=== PATIENT | male | born 1960 | race Caucasian/White ===

== ENCOUNTER 2016-10-05 14:11 | Inpatient (IN) | payer MEDICARE ==
[~2016-10-05] VITALS: Ht 177.8 cm; Wt 64.2 kg
--- NOTE | ~2016-10-05 | DS ---
PATIENT'S NAME: ISREAL KNIGHT [facility] AGE: 56 Y [address] ROOM: [place] [address] LOCATION: [facility] ADMIT DATE: 10/05/2016 Discharge Summary DISCHARGE DATE: 10/15/2016 FAMILY PHYSICIAN: Physician, Unknown ATTENDING PHYSICIAN: Kaity Bradshaw PRINCIPAL DISCHARGE DIAGNOSIS: Severe sepsis with shock. SECONDARY DIAGNOSES: 1. Left distal ureteral obstruction, secondary to calculus. 2. History of left hydronephrosis, prior to stenting. 3. Acute kidney injury with creatinine of 2.9, present on admission. 4. Thrombocytopenia with a platelet count of 4, present on admission. 5. Hepatitis C with cirrhosis. 6. Gastroesophageal reflux disease. 7. Depression. 8. Diabetes mellitus type 2, poorly controlled, with a hemoglobin A1c of 12.4, present on admission. CONSULTATIONS: 1. Urology, on 10/05/2016, Dr. Dominique. 2. Dr. Kearney of Nephrology on 10/09/2016. PROCEDURES: Cystourethroscopy with left ureteral stent placement on 10/05/2016. COMPLICATIONS: None. BRIEF HISTORY: Mr. Knight is a 56-year-old male with chronic hepatitis C and end-stage liver cirrhosis transferred from [place] with septic shock related to urinary tract infection with Enterobacter aerogenes from blood cultures drawn on 10/05/2016. He was treated with ceftriaxone and Levaquin. Levaquin was discontinued today. He required the stenting and received some continuous bladder irrigation up until 2 mornings ago. His urinary catheter was discontinued yesterday morning. He has been urinating well without it. He had acute kidney injury related to left hydronephrosis, obstructive, but also probably likely related to his chronic liver failure and probably dehydration; so, it is probably multifactorial and hepatorenal syndrome could not be ruled out. He has been managed by Dr. Kearney and treated with diuretics, which were held yesterday, but he continued to have good output. We will resume Aldactone 12.5 p.o. daily and Lasix 40 mg p.o. daily now. PATIENT'S NAME: ISREAL KNIGHT [facility] AGE: 56 Y [address] ROOM: [place] [address] LOCATION: [facility] ADMIT DATE: 10/05/2016 Discharge Summary DISCHARGE DATE: 10/15/2016 FAMILY PHYSICIAN: Physician, Unknown ATTENDING PHYSICIAN: Kaity Bradshaw The patient has very poorly-controlled diabetes with an A1c of 12.4, also present on admission. He has been on basal insulin plus sliding scale. I added prandial dosing yesterday and increased his basal insulin and his sugars are much lower today. He had been in the 300s and high 200s. We elected to keep him on a sliding scale with both the prandial and basal insulin dosing now. He had severe thrombocytopenia, also present on admission. He received a total of 8 units of platelet transfusion. Currently, he has no active bleeding and platelet count has been stable in the 30s for the past few days, currently 39. He has had leukocytosis despite being on 2 appropriate antibiotics according to the susceptibilities for his bacteremia and now have started diarrhea this morning. We will try to obtain a specimen for C. diff prior to transfer as this may be the reason for his leukocytosis. PHYSICAL EXAMINATION: VITAL SIGNS: He is otherwise afebrile with vital signs stable. Current vital signs are temperature 97.9, he has been afebrile for days, his pulse is 78, his respirations are 16, his blood pressure is 130/79, in this cachectic male who is awake, alert, and oriented. LUNGS: Clear bilaterally. HEART: Rate is regular. ABDOMEN: Full, distended, slightly tender with normoactive bowel sounds. EXTREMITIES: There is no cyanosis, clubbing, or edema in the lower extremities. LABORATORY DATA: Current Accu-Chek is 108. Current metabolic panel shows sodium 138, potassium 3.5, chloride 101, CO2 25, BUN 114, creatinine 2.8, albumin 2.5, phosphorus 4.8, and mag 1.7. A prealbumin was ordered, but not resulted yet. The patient is in agreement with the plan for discharge. His family is not here yet. I have attempted to call Dr. Wilson, he was not in his office today, I called his cellphone and left a message, and I will speak with him prior to the patient reporting to the hospital. INSTRUCTIONS AT DISCHARGE: He has a diabetic hepatic diet, regular texture, activity as tolerated. He should continue OT, PT, Speech Therapy, Palliative Care with Dr. Yates at [place]. He is to follow up with Dr. Wilson there. MEDICATIONS AT THE TIME OF DISCHARGE: Include: 1. Lasix 40 mg p.o. daily. 2. NovoLog prandial dosing 4 units with each meal sliding scale with the PATIENT'S NAME: ISREAL KNIGHT [facility] AGE: 56 Y [address] ROOM: [place] [address] LOCATION: [facility] ADMIT DATE: 10/05/2016 Discharge Summary DISCHARGE DATE: 10/15/2016 FAMILY PHYSICIAN: Physician, Unknown ATTENDING PHYSICIAN: Kaity Bradshaw lower scale with NovoLog before each meal and at bedtime. 3. Levemir 15 units at h.s. daily subcu. 4. Midodrine 10 mg p.o. t.i.d. 5. Morphine sulfate. 6. MS Contin 15 mg p.o. b.i.d. 7. Protonix 40 mg p.o. daily. 8. Spironolactone 12.5 mg p.o. daily. 9. Tamsulosin 0.4 mg b.i.d. 10. Zofran 4 mg p.o. p.r.n. nausea. 11. Promethazine 12.5 mg p.o. p.r.n. nausea. 12. Slow-Mag one p.o. b.i.d. CONDITION AT DISCHARGE: Fair. DARWIN LIU MD LM/jesse /[id number] d: 10/16/16219 t: 10/20/16 1202, DISCHARGE SUMMARY
--- NOTE | ~2016-10-05 | HP ---
PATIENT'S NAME: ISREAL KNIGHT [facility] AGE: 56 Y [address] ROOM: [place] [address] LOCATION: GICU ADMIT DATE: 10/05/2016 History & Physical DISCHARGE DATE: FAMILY PHYSICIAN: PHYSICIAN, UNKNOWN ATTENDING PHYSICIAN: JOSSELYN MCKINNEY DATE OF SERVICE: CHIEF COMPLAINT: Septic shock, obstructive uropathy, and left-sided hydronephrosis with kidney stones. HISTORY OF PRESENT ILLNESS: This is a 56-year-old male with chronic hepatitis C and cirrhosis, transferred from [place] after presenting there in septic shock. The patient had visited their emergency room just two days prior and was diagnosed with a left- sided nephrolithiasis and was stent home with pain medications and conservative care. However, the day following his discharge, patient continued to have dizziness, lightheadedness, and worsening pain with associated fever and chills. Upon presentation, the patient was found to be hypotensive and significant pain with altered mental status. Per report, the patient was brought to emergency room with his ex- in a minimal responsive state. On my evaluation today, the patient is ill appearing. However, he is alert, awake, and oriented x3, and he could tell me his name and where he is. Does report significant left-sided abdominal pain. PAST MEDICAL HISTORY: 1. Chronic hepatitis C. 2. Chronic low back pain. 3. Type 2 diabetes. FAMILY HISTORY: No report of diabetes, hypertension, or heart disease noted. SOCIAL HISTORY: The patient is known to have chronic hepatitis C, but no reports of previous IV drug use history. No reports of tobacco use to be found on the chart. REVIEW OF SYSTEMS: A 10-point review of systems was conducted and were all negative except as the one which was described in the HPI. PHYSICAL EXAMINATION: VITAL SIGNS: Blood pressure is 103/68 on maximum Levophed, heart rate is 103, respiratory rate 25, and saturating 90% on 3 L of oxygen. PATIENT'S NAME: ISREAL KNIGHT [facility] AGE: 56 Y [address] ROOM: [place] [address] LOCATION: GICU ADMIT DATE: 10/05/2016 History & Physical DISCHARGE DATE: FAMILY PHYSICIAN: PHYSICIAN, UNKNOWN ATTENDING PHYSICIAN: JOSSELYN MCKINNEY GENERAL: The patient is ill-appearing. Awake, alert, and oriented x3, in moderate amount of distress. HEENT: The patient exhibits dry mucosal membranes. Does exhibit some mild scleral icterus. SKIN: Erythema of bilateral feet. ABDOMEN: Tenderness to palpation over the suprapubic and left flank area. It is otherwise soft. MUSCULOSKELETAL: No joint redness or swelling noted. NEUROLOGIC: Grossly nonfocal. LABORATORY DATA: Significant labs: The patient's creatinine is 2.9. Platelets of 4, unclear what is the patient's baseline is. The patient reports from [place] [facility] has had a CT scan of the abdomen done which showed obstructive uropathy on the left side with significant hydronephrosis and obstructing renal calculi noted as well. ASSESSMENT AND PLAN: 1. Severe sepsis with shock. The is related to likely urinary tract infection stemming from and complicated by obstructive uropathy. The patient is noted to have hydronephrosis and an obstructing stone in the left ureter. Asking for prompt Urology evaluation and Dr. Dominique is to see the patient as soon as possible. In the meantime, we will continue with broad-spectrum antibiotics with Zosyn, aggressive IV fluid resuscitation, as well as pressor support. The patient's platelets noted to be 4, so we will try and correct that before any anticipated urgent urological intervention. 2. Obstructive uropathy stemming from an obstructing renal calculi on the left side. Management as above. 3. Acute kidney injury, creatinine is 2.9. This is related to septic shock picture as well as obstructive uropathy. We will continue to monitor the kidney function with the treatment of sepsis and relieving of obstruction. 4. Thrombocytopenia. Platelets are 4. The patient is high risk for bleeding in the setting of patient in the ICU and requiring procedures for that. We will prepare one pack of platelets and transfuse urgently. 5. Chronic hepatitis C and possible cirrhosis. The patient tells me that he is not aware of having cirrhosis. Thrombocytopenia is perhaps related to this. 6. Deep venous thrombosis prophylaxis. We will use SCDs. JOSSELYN MCKINNEY MD PATIENT'S NAME: ISREAL KNIGHT [facility] AGE: 56 Y [address] ROOM: [address] [address] [address]: [facility] ADMIT DATE: 10/05/2016 History & Physical DISCHARGE DATE: FAMILY PHYSICIAN: PHYSICIAN, UNKNOWN ATTENDING PHYSICIAN: JOSSELYN MCKINNEY /[id number] D: [id number] T: [id number] HISTORY & PHYSICAL
--- NOTE | ~2016-10-05 | CON ---
PATIENT'S NAME: ISREAL KNIGHT [facility] AGE: 56 Y [address] ROOM: [place] [address] LOCATION: GPCU ADMIT DATE: 10/05/2016 Consultation DISCHARGE DATE: FAMILY PHYSICIAN: PHYSICIAN, UNKNOWN ATTENDING PHYSICIAN: JOSSELYN MCKINNYE DATE OF CONSULTATION: 10/07/2016 REFERRING PHYSICIAN: MACIEL DALEY MD LOCATION: ICU room [facility]. REFERRING PHYSICIAN: CHIEF COMPLAINT: Palliative care referral per family's request due to the patient's decline over the last few months. HISTORY OF PRESENT ILLNESS: The patient is a 56-year-old male with chronic hepatitis C and end-stage liver cirrhosis, who was transferred to us from [place] after presenting there in septic shock. Apparently, a few days prior to this, the patient had presented and was found to have left-sided nephrolithiasis and was given pain medication and antibiotics and sent home, but at home the patient continued to have lightheadedness, worsening pain, fever, and chills, and upon re- evaluation in the ER, was found to be hypotensive with altered mental status. At the time of consult, the patient is in the Intensive Care Unit. He is arousable but disoriented x3. Unable to really answer any orientation or review of system questions. He has been weaned off vasopressors, but lies in intensive care unit, moaning in pain, despite the fact that he shakes his head no when asked if he is having pain. Family reports the patient's condition has been declining over the last few months. The patient's ex- is a hospice nurse and is quite realistic to his situation and is requesting palliative care services to assist with the patient's care. PREVIOUS OPERATIONS: None. PAST MEDICAL HISTORY: 1. Chronic hepatitis C. 2. End-stage liver disease. 3. Chronic low back pain. 4. Diabetes mellitus type 2. PATIENT'S NAME: ISREAL KNIGHT [facility] AGE: 56 Y [address] ROOM: [place] [address] LOCATION: GPCU ADMIT DATE: 10/05/2016 Consultation DISCHARGE DATE: FAMILY PHYSICIAN: PHYSICIAN, UNKNOWN ATTENDING PHYSICIAN: GEBREMICHAEL,BARKOT MEDICATIONS: Please see current MAR. ALLERGIES: NO KNOWN ALLERGIES. SOCIAL HISTORY: He does have a history of recreational drug use in the past. No current alcohol use. He has a history of smoking. He quit in 2016. FAMILY HISTORY: Diabetes and heart disease in his father's side of the family. REVIEW OF SYSTEMS: GENERAL: Family reports a significant 20+ pound weight loss in the last few months. Appetite has been decreasing at home. Had some fever and chills while at home, none recently. HEENT: No headaches. RESPIRATORY: Denies feeling short of breath. CARDIOVASCULAR: Denies chest pain. Has had some peripheral edema. GASTROINTESTINAL: No recent nausea, vomiting, diarrhea, or constipation. Denies dysphagia. GENITOURINARY: No dysuria. MUSCULOSKELETAL: Has chronic back pain. Currently denies any pain when asked. NEUROLOGICAL: No seizures. Denies dizziness. INTEGUMENTARY: No rashes or open areas. HEMATOLOGICAL: Does have lots of new bruises and petechiae. PSYCHIATRIC: Family reports history of paranoia and even delirium at home. PHYSICAL EXAMINATION: VITAL SIGNS: Blood pressure 90/62, heart rate 113, temperature 96.5, respirations 26, O2 saturation 95% on 5 L. GENERAL: Reveals a cachectic middle-aged male who appears much older than his age of 56. He is disoriented x3. Moans out and appears to be in pain, but denies pain whenever asked. HEENT: Normocephalic, atraumatic. Does have temporal muscle wasting. Pupils are equal and reactive to light. Sclerae nonicteric. Conjunctivae pink. Tongue and mucous membranes are dry. Dentition is poor. CARDIOVASCULAR: Heart tones regular in rate and rhythm. I am not able to note a murmur. RESPIRATORY: Respirations are regular and nonlabored. Lung sounds are clear to auscultation bilaterally. GASTROINTESTINAL: Abdomen, bowel sounds are present, but any time his abdomen is touched the patient moans out but continues to deny pain. GENITOURINARY: Hinson catheter is intact with adequate amounts of pink-tinged PATIENT'S NAME: ISREAL KNIGHT [facility] AGE: 56 Y [address] ROOM: [place] [address] [facility] ADMIT DATE: 10/05/2016 Consultation DISCHARGE DATE: FAMILY PHYSICIAN: PHYSICIAN, UNKNOWN ATTENDING PHYSICIAN: JOSESLYN MCKINNEY. He does have CBI running. MUSCULOSKELETAL: No significant joint deformities. Peripheral pulses are 1+ bilaterally. There is no clubbing, cyanosis, or edema. SKIN: Warm and dry. Does have petechiae and bruising all over bilateral upper and lower extremities. NEUROLOGICAL: The patient is easily arousable. Does not answer orientation questions. Is able to answer some yes/no questions but not consistently. Moves all 4 extremities spontaneously. Does not appear to have any weakness. IMPRESSION AND PLAN: 1. Altered mental status. 2. Questionable pain. The patient denies but does appear to have pain on examination. He was on MS Contin at home and had recently had this dose increased and also was using some short-acting morphine as well. His ex- does express concern of him possibly going through withdrawal as he has been on MS Contin for quite some time and he is not currently on anything except for p.r.n. Dilaudid. 3. Code status. The patient is a DO NOT RESUSCITATE/DO NOT INTUBATE, does not have an advance directive or living will. I did visit with the patient's ex-. They have five children together. The oldest is 18. Ex- has been quite involved in his care and is a hospice nurse. She is quite up-to-date on his condition and reports that he has been declining for some time. She does also report that if he does not make some improvements in the next day or two, she would like to bring him backing in machine tender to home and make him comfort cares or hospice. She does report that his sister is coming in from the [facility] and that the rest of the family will most likely be up here to visit in the next day or two, and we can further discuss goals of care at that time. At this point, she wants to continue with current aggressive measures, but should things worsen, she would not want him intubated or CPR given. Answered her questions, updated her on the patient's current condition, and will plan to meet up with the family in the next day or two for further goals of care conversations. Spent 15 minutes on the phone visiting with the patient's , another 15 minutes reviewing the chart, and 15 minutes at bedside with the patient. Thank you for allowing me to assist this patient. SIN COUGHLIN NP FOR DAWOOD LEGER MD DLS/modl PATIENT'S NAME: ISREAL KNIGHT [facility] AGE: 56 Y [address] ROOM: [address] [address] [facility] ADMIT DATE: 10/05/2016 Consultation DISCHARGE DATE: FAMILY PHYSICIAN: PHYSICIAN, UNKNOWN ATTENDING PHYSICIAN: JOSSELYN MCKINNEY /[id number] CC: Josselyn Mckinney MD d: 10/14/16 0233 t: 10/23/16 0821, CONSULTATION REPORT
--- NOTE | ~2016-10-05 | CON ---
PATIENT'S NAME: ISREAL KNIGHT [facility] AGE: 56 Y [address] ROOM: [address] [address] LOCATION: GICU ADMIT DATE: 10/05/2016 Consultation DISCHARGE DATE: FAMILY PHYSICIAN: PHYSICIAN, UNKNOWN ATTENDING PHYSICIAN: JOSSELYN MCKINNEY DATE OF CONSULTATION: 10/05/2016 CHIEF COMPLAINT: Sepsis secondary to left obstructing distal ureteral calculus. HISTORY OF PRESENT ILLNESS: The patient is a 56-year-old male, who was transferred from [facility] Emergency Room in critical condition. He was transferred via helicopter and just arrived to our intensive care unit. He apparently had been seen in the emergency room in [place], [place], on October 03, 2016, with complaints of left flank pain. There, he was noted to have an elevated white blood cell count of 16.8 and urine concerning for urinary tract infection with positive nitrites. He also was found to have a distal obstructing 3 mm left ureteral calculus. Apparently, he was discharged to home from the emergency room that day. He was found by his family unresponsive today, and was brought back into the emergency room, where he was found to have hypotension, and his white blood cell count had dropped to 7.0. His urine output was bloody and purulent. He also has a history of end-stage liver disease and chronic hepatitis C. His serum creatinine level had increased to 2.96, which was 1.06 on October 03, 2016. Also, his platelets decreased from 154 to 4. The patient was requiring Levophed pressor support given hypotension. The patient had apparently underwent administration with both Levaquin and vancomycin prior to air transport. Upon arrival to the intensive care unit, he began receiving Zosyn antibiotic. There is no reported history of prior nephrolithiasis. The patient still reports continued left abdominal and flank pain. His urine culture from 2 days ago was growing Gram-negative bacilli. PAST MEDICAL AND SURGICAL HISTORY: 1. Chronic GERD. 2. Chronic hepatitis C. 3. Chronic low back pain. 4. Depression. 5. Diabetes mellitus type 2. FAMILY HISTORY: Noncontributory. ALLERGIES: PATIENT'S NAME: ISREAL KNIGHT [facility] AGE: 56 Y [address] ROOM: [place] [address] LOCATION: [facility] ADMIT DATE: 10/05/2016 Consultation DISCHARGE DATE: FAMILY PHYSICIAN: PHYSICIAN, UNKNOWN ATTENDING PHYSICIAN: JOSSELYN MCKINNEY NO KNOWN DRUG ALLERGIES. MEDICATIONS: See hospitalization medication reconciliation. REVIEW OF SYSTEMS: A full 10+ point review of systems was performed with pertinent positive and negative findings including in history of present illness. All other systems reviewed and are otherwise negative. PHYSICAL EXAMINATION: CONSTITUTIONAL: The patient is in moderate distress, but is awake and responds to questioning. HEENT: Extraocular muscles intact. Mucous membranes moist. No drainage per ears or nose. CARDIAC: Tachycardia, but good peripheral perfusion. RESPIRATORY: No audible wheezing. ABDOMEN: Moderate discomfort to left lower quadrant and flank with palpation. GENITOURINARY: Indwelling Hinson catheter draining purulent bloody urine output. He is uncircumcised, and his testes are palpably normal. MUSCULOSKELETAL: Moves all extremities. NEUROLOGIC: No focal deficits noted. HEMATOLOGIC: The patient does have bloody urine output. PSYCHIATRIC: He answers questions appropriately with normal affect. The patient is somewhat lethargic. IMAGING: I personally reviewed his CT scan from today consistent with an obstructing distal left ureteral calculus with associated severe hydroureter and hydronephrosis. IMPRESSION: 1. Obstructing left distal ureteral calculus. 2. Urosepsis. PLAN: I had a long discussion with the patient and given his critical state and obstructing infected ureteral calculus, I recommended urgent intervention. I recommended cystoscopy with placement of indwelling left ureteral stent. I also discussed the possibility of the need for percutaneous nephrostolithotomy should his state become more critical or if we are unable to place a ureteral stent. We will also continue broad-spectrum antibiotics pending urine cultures. The patient's questions and concerns were addressed, and he has no further at this time. PATIENT'S NAME: ISREAL KNIGHT [facility] AGE: 56 Y [address] ROOM: [place] [address] LOCATION: [facility] ADMIT DATE: 10/05/2016 Consultation DISCHARGE DATE: FAMILY PHYSICIAN: PHYSICIAN, UNKNOWN ATTENDING PHYSICIAN: JOSSELYN MCKINNEY MD DORINDA CRUMP/jesse /[id number] d: 10/06/16 0010 t: 10/06/16 1553, CONSULTATION REPORT
--- NOTE | ~2016-10-05 | CON ---
PATIENT'S NAME: ISREAL KNIGHT [facility] AGE: 56 Y [address] ROOM: [place] [address] LOCATION: GPCU ADMIT DATE: 10/05/2016 Consultation DISCHARGE DATE: FAMILY PHYSICIAN: PHYSICIAN, UNKNOWN ATTENDING PHYSICIAN: JOSSELYN MCKINNEY DATE OF CONSULTATION: 10/09/2016 REFERRING PHYSICIAN: MACIEL DALEY MD REASON FOR CONSULTATION: KATRIN versus KATRIN on CKD. 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 Now, creatinine is 4 with estimated GFR around 15. Nephrology consultation has been called for further evaluation and management. He has been actually transferred from [place] after presenting there with a septic shock and diagnosed with left-sided nephrolithiasis and was sent home with pain medication and conservative care, but the day following discharge, the patient continued to have dizziness, lightheadedness, worsening pain, associated with fever and chills. Upon presentation, found to have hypotension and altered mental status. The patient was transferred here and found to have sepsis. Urology consultation was called urgently requiring left- sided ureteral stent. After the ureteral stent placement, his urine output has improved significantly. The patient was getting aggressive IV hydration as well as IV antibiotic for sepsis. Sepsis resolved. The patient clinically felt better. Altered mental status resolved; however, urine is still dark and the patient's creatinine continues to worsen despite all conservative management. REVIEW OF SYSTEMS: The patient although more alert than before, but still confused and more details of review of systems could not be obtained at this point. PAST MEDICAL HISTORY: 1. ESRD secondary to chronic hepatitis C. 2. Chronic lower back pain. 3. Type 2 diabetes. FAMILY HISTORY: No history of diabetes, hypertension, heart disease, or CKD. PATIENT'S NAME: ISREAL KNIGHT [facility] AGE: 56 Y [address] ROOM: [place] [address] LOCATION: GPCU ADMIT DATE: 10/05/2016 Consultation DISCHARGE DATE: FAMILY PHYSICIAN: PHYSICIAN, UNKNOWN ATTENDING PHYSICIAN: JOSSELYN MCKINNEY SOCIAL HISTORY: No history of previous IV drug abuse. History of chronic hepatitis C. No reports of smoking. PHYSICAL EXAMINATION: VITAL SIGNS: Blood pressure 100/60, heart rate 105-118, respiratory rate 22, saturations 90% to 95% on 2-3 L of oxygen. GENERAL: Not in apparent distress. HEAD: Moist mucous membranes. Bilateral PERRLA, EOMI. NECK: Positive JVD. No thyromegaly or lymphadenopathy. CVS: S1 and S2 normal, regular rate and rhythm. No murmur, rub, gallop. CHEST: Bilateral air entry equal anteriorly; however, there is decreased breath sound at the bases. No wheezes or rales. ABDOMEN: Soft, nontender, mildly distended. Bowel sounds present. EXTREMITIES: No cyanosis, clubbing, jaundice, 1+ dependent edema in bilateral lower extremities. MUSCULOSKELETAL: No limitation of range of motion. SKIN: No pallor, cyanosis, icterus. FORENSIC PHOTOGRAPHER: Alert and tries to communicate; however, appears to be confused and have fluctuating mental status. No gross focal neurological deficit and moves all 4 extremities. ASSESSMENT AND PLAN: 1. Acute kidney injury versus acute kidney injury on chronic kidney disease, although baseline creatinine is unknown, but as per the , creatinine at baseline was around 1.3. Currently, creatinine is in the 4 range, although has a significant component of obstructive uropathy in the beginning, but now probably has septic acute tubular necrosis versus hepatorenal syndrome with a history of end-stage liver disease in the past. The patient has distended abdomen, although there has been no history of ascites or paracentesis in the past. We will get an abdominal ultrasound to look for renal parenchyma, any persistence of hydronephrosis, as well as any ascites, although with a diagnosis of hepatorenal syndrome, we have to withhold all the diuretic and start volume expanding for 24 hours, but presumably with a history of end-stage renal disease secondary to hepatitis C, hepatorenal syndrome is obviously a possible potential explanation. We will start hyperoncotic albumin 25% 100 mL IV q.4 hourly into 6 doses along with splanchnic vasoconstrictor including midodrine and octreotide. Octreotide drip is better than the subcutaneous bolus dose. We will go with the drip for now. Our goal will be to keep the MAP at least 15-20 points above the current baseline. Strictly monitor intake and output. We will send UA, urine culture and sensitivity, and urine lytes including sodium, potassium, chloride, bicarbonate. PATIENT'S NAME: ISREAL KNIGHT [facility] AGE: 56 Y [address] ROOM: [id number] [place], [place] [id number] LOCATION: GPCU ADMIT DATE: 10/05/2016 Consultation DISCHARGE DATE: FAMILY PHYSICIAN: PHYSICIAN, UNKNOWN ATTENDING PHYSICIAN: JOSSELYN MCKINNEY 2. Obstructive uropathy, status post stenting. We will do a renal ultrasound to see if there is resolution of hydronephrosis or persistence. If there is a persistent hydronephrosis, Urology has to be contacted immediately for further evaluation and management. 3. Thrombocytopenia: High risk for bleeding, currently has some hematuria. The patient got platelet transfusion before. We will closely monitor for now and defer further management as per the primary team. 4. End-stage renal disease with chronic hepatitis C. The patient has features of end-stage liver disease, although never had any significant ascites or paracentesis, but the patient's abdomen looked distended and the patient got aggressive volume resuscitated in the last few days. We will get an ultrasound to look for ascites. If there is significant ascites, the patient might need tapping. However, thrombocytopenia can prevent aggressive management. Although the patient has no features of spontaneous bacterial peritonitis, but with history of recent infection, urinary tract infection, and sepsis, we will continue Rocephin 2 g IV daily for both possibly sepsis-related urinary tract infection and spontaneous bacterial peritonitis. Thank you for allowing me to participate in this patient's care. We will closely monitor the patient's progress along with you. HOLLI PRIDE MD /modl /[id number] d: 10/09/16 2337 t: 10/10/16 1420, CONSULTATION REPORT
--- NOTE | ~2016-10-05 | OR ---
PATIENT'S NAME: ISREAL KNIGHT [facility] AGE: 56 Y [address] ROOM: [address] [address] LOCATION: GICU ADMIT DATE: 10/05/2016 OR/Procedure Report DISCHARGE DATE: FAMILY PHYSICIAN: PHYSICIAN, UNKNOWN ATTENDING PHYSICIAN: JOSSELYN MCKINNEY SURGEON: Maciel Dominique MD JUICE STANDARDIZER: None. DATE OF PROCEDURE: 10/05/2016 PREOPERATIVE DIAGNOSES: 1. Obstructing left distal ureteral calculus. 2. Urosepsis. POSTOPERATIVE DIAGNOSES: 1. Obstructing left distal ureteral calculus. 2. Urosepsis. PROCEDURE PERFORMED: Cystourethroscopy with placement of indwelling left ureteral stent. ANESTHESIA: Administered monitored anesthesia care. INDICATIONS FOR PROCEDURE: The patient is a 56-year-old male with chronic hep C and DM, who had presented 2 days ago on October 03, 2016, to the emergency room in [place], [place], and was found to have an obstructing distal left ureteral calculus. He also was noted to have nitrite positive urine as well as an elevated white blood cell count, and apparently was discharged home from the emergency room. He was found unresponsive today by his daughter and brought into the emergency room where the patient was found to be in septic shock. He was transported via helicopter to [facility] this afternoon. The patient was explained the risks, benefits, indications, and alternatives to the above procedure and wished to proceed and consented freely. DESCRIPTION OF OPERATION: The patient was brought back to the operating room, where he was placed on the OR table in the supine position. A surgical time- out was called where patient identification, surgical site, and procedure were then verified. We also did verify that the patient received an IV antibiotic prior to the procedure. The patient then underwent successful administration of monitored anesthesia care. He was moved and placed in a low lithotomy position, where his genital area was then prepped and draped in the usual sterile fashion. I began by advancing the rigid cystoscope easily into the patient's urinary bladder. His anterior urethra was within normal limits. His posterior urethra was notable for moderate bilobar hyperplasia of the prostate. Upon entering to his bladder, full uribe-cystoscopy was performed. PATIENT'S NAME: ISREAL KNIGHT [facility] AGE: 56 Y [address] ROOM: [address] [address] LOCATION: GICU ADMIT DATE: 10/05/2016 OR/Procedure Report DISCHARGE DATE: FAMILY PHYSICIAN: PHYSICIAN, UNKNOWN ATTENDING PHYSICIAN: JOSSELYN MCKINNEY He did have some blood within his bladder and visualization was somewhat clouded given the blood. I evacuated his bladder several times and did not appreciate any obvious bladder tumors or cellules. He did have some mild trabeculations noted. His ureteral orifices were noted to be in their orthotopic location. I then carefully advanced a Sensor guidewire, cannulating his left ureteral orifice and was able to navigate the wire passed, the ureteral stone and the wire up to the patient's left renal collecting system. Then, over the wire, I advanced a 6-Maldivian x 28 cm ureteral stent deploying it, noting a good curl fluoroscopically in the patient's left renal collecting system as well as a good curl visually in the patient's bladder. I then emptied the patient's bladder and the patient was then taken out of the lithotomy position, where he was awoken from monitored anesthesia care. Transferred to recovery bed and transported to the recovery room in guarded condition, still on pressor support. The patient did tolerate this procedure well. DRAINS: Indwelling 6-Maldivian x 28 cm ureteral stent. ESTIMATED BLOOD LOSS: Minimal. SPECIMENS: We did send urine for culture, after placement of the stent to get some specimen from the draining left kidney. FOLLOWUP PLAN: The patient will be sent back to the intensive care unit to continue pressor support and IV antibiotics. MACIEL DOMINIQUE MD GP/jesse /[id number] d: 10/06/16 0030 t: 10/06/16 1558, OPERATIVE SUMMARY
[2016-10-05] MEDS ORDERED: MS CONTIN60 MG PO (15:19)
[2016-10-05] MEDS ORDERED: FLOMAX0.4 MG PO (15:19)
[2016-10-05] MEDS ORDERED: MORPHINE SULFAT30 MG PO (15:19)
[2016-10-05] MEDS ORDERED: ZOFRAN ODT 4 MG4 MG PO (15:20)
[2016-10-05] MEDS ORDERED: OMEPRAZOLE40 MG PO (15:20)
[2016-10-05] MEDS ORDERED: AMITIZA8 MCG PO (15:21)
[2016-10-05] MEDS ORDERED: PROMETHAZINE12.5 M1 PO (15:24)
[2016-10-05 16:01] LABS: BICARBONATE 21.8 mmol/L (18.0-23.0); PCO2 36 mmHg (35-45); PO2 134 mmHg (80-90)
[2016-10-05 16:04] LABS: HEMATOCRIT 31.8 % (37.0-53.0); HEMOGLOBIN 11.2 g/dL (12.0-17.0); MCH 30.5 pg (27.0-34.0); MCHC 35.2 gm/dL (32.0-36.5); MCV 86.6 fl (83.0-98.0); MPV 12.7 fl (9.4-12.4); RBC 3.67 M/uL (4.00-6.00); RDW-CV 13.9 % (11.9-14.6)
[2016-10-05 16:10] LABS: INR - (THERAPEUTIC) 1.3 (0.9-1.1); PROTIME 13.8 SECONDS (9.6-11.1)
[2016-10-05 16:16] LABS: PLATELET COUNT 5 K/uL (150-450)
[2016-10-05 16:18] LABS: BLOOD URINE 250 /UL (NEGATIVE); GLUCOSE URINE NEGATIVE (NEGATIVE); KETONE URINE 5 mg/dL (NEGATIVE); LEUKOCYTES URINE NEGATIVE /UL (NEGATIVE); NITRITE URINE NEGATIVE (NEGATIVE); PH URINE 6.5 (4.0-8.0); PROTEIN URINE 500 mg/dL (NEGATIVE); SPEC GRAVITY URINE 1.015 (1.003-1.035); UROBILINOGEN URINE 1 mg/dL (NORMAL)
[2016-10-05 16:19] LABS: COLOR URINE BROWN (YELLOW); TURBIDITY URINE 4+ (CLEAR)
[2016-10-05 16:20] LABS: RBC URINE PACKED FIELD #/HPF (NEGATIVE); WBC URINE 0-2 #/HPF (NEGATIVE)
[2016-10-05 16:21] LABS: BACTERIA URINE RARE (NEGATIVE); EPITHELIAL URINE 0-2 #/HPF (NEGATIVE)
[2016-10-05 16:24] LABS: ANION GAP 16.4 (10.0-19.0); CREATININE 2.6 mg/dL (0.6-1.3); MAGNESIUM 1.6 mg/dL (1.3-2.6); POTASSIUM 4.4 mMol/L (3.7-5.1); TOTAL BILIRUBIN 1.2 mg/dL (0.0-1.5); TOTAL PROTEIN 5.2 g/dL (6.0-8.4)
[2016-10-05 16:25] LABS: ALBUMIN 1.6 gm/dL (3.5-5.0); CALCIUM 6.9 mg/dL (8.5-10.5)
[2016-10-05 16:32] LABS: ABSOLUTE NEUTROPHIL CT (ANC) 7.6 K/uL (1.4-9.0); BANDED NEUTROPHIL # 0.2 K/uL (0.0-0.1); BANDED NEUTROPHILS % 2 %; LYMPHOCYTE # 0.8 K/uL (0.8-4.0); LYMPHOCYTE % 8 %; MONOCYTE # 1.5 K/uL (0.0-1.0); SEGMENTED NEUTROPHIL # 7.4 K/uL (1.4-9.0); SEGMENTED NEUTROPHIL % 74 %
[2016-10-05 16:33] LABS: PCO2 29 mmHg (35-45)
[2016-10-05 16:34] LABS: BICARBONATE 19.3 mmol/L (18.0-23.0)
[2016-10-05 16:35] LABS: PO2 56 mmHg (80-90)
--- NOTE | 2016-10-05 17:40 | NUR ---
PATIENT ADMITTED FROM [place] WITH DX OF SEPSIS AT 1430 TODAY. HAD BEEN SEEN IN [place] ON THURSDAY FOR FLANK PAIN, CT WITH CONTRAST DONE AND PATIENT WAS SENT HOME. TODAY HE WAS FOUND AT HOME IN PAIN AND DECREASED LOC, TAKEN TO ED IN [place] WHERE A BEAR CATHETER WAS PLACED WITH PUSS AND BLOODY DISCHARGE, PATIENT BECAME HYPOTENSIVE AND SHOWED SYMPTOMS OF SEPSIS AND SENT BY AIR TRANSPORT TO [facility], ADMITED TO ICU WITH 2 PIV, LEVOPHED AT 0.1 MCQ.KG/MIN. LAB DRAWN, PLATLETTS ORDERED. TO OR FOR CYSTO AND STENT PLACEMENT AT 1645.
--- NOTE | 2016-10-06 05:20 | NUR ---
Significant Event: Patient alert, oriented to person and town. Knows month but not year. Confused statements at times which is baseline per family. [address] and CBI started. Urine is light pink with small clots noted. Levo continues to keep MAP greater than 65. Pain managed with oral morphine and IVP dilaudid. Yells out at times. Cooperative with cares. Follow up: continue
[2016-10-06 06:56] LABS: HEMATOCRIT 32.9 % (37.0-53.0); HEMOGLOBIN 11.4 g/dL (12.0-17.0); MCH 30.3 pg (27.0-34.0); MCHC 34.7 gm/dL (32.0-36.5); MCV 87.5 fl (83.0-98.0); MPV 10.3 fl (9.4-12.4); RBC 3.76 M/uL (4.00-6.00); RDW-CV 14.2 % (11.9-14.6); WBC 11.6 K/uL (4.0-11.0)
[2016-10-06 06:58] LABS: PLATELET COUNT 4 K/uL (150-450)
[2016-10-06 07:01] LABS: INR - (THERAPEUTIC) 1.4 (0.9-1.1); PROTIME 14.7 SECONDS (9.6-11.1)
[2016-10-06 07:22] LABS: ANION GAP 19.8 (10.0-19.0); CREATININE 2.8 mg/dL (0.6-1.3); MAGNESIUM 1.9 mg/dL (1.3-2.6); POTASSIUM 4.8 mMol/L (3.7-5.1); TOTAL PROTEIN 5.5 g/dL (6.0-8.4)
[2016-10-06 07:28] LABS: ALBUMIN 1.6 gm/dL (3.5-5.0); CALCIUM 7.2 mg/dL (8.5-10.5); TOTAL BILIRUBIN 2.1 mg/dL (0.0-1.5)
[2016-10-06 07:31] LABS: ABSOLUTE NEUTROPHIL CT (ANC) 9.5 K/uL (1.4-9.0); BANDED NEUTROPHIL # 0.6 K/uL (0.0-0.1); BANDED NEUTROPHILS % 5 %; LYMPHOCYTE # 0.8 K/uL (0.8-4.0); LYMPHOCYTE % 7 %; MONOCYTE # 1.3 K/uL (0.0-1.0); SEGMENTED NEUTROPHIL # 8.9 K/uL (1.4-9.0); SEGMENTED NEUTROPHIL % 77 %
--- NOTE | 2016-10-06 15:27 | NUR ---
Introduced self and role of customer care agent to his ex Nohemi Mancilla [phone], I tried to talk with pt but he kept falling asleep and son was present as well. I did talk with her in private and she states he has not been doing very well lately and it is just time for him and his disease. She states he will not be able to go home. She told me she is a RN down in [place] with hospice and works weekends at the hospital. She knows Claire Jaramillo and he will need [facility] for comfort cares, etc if he makes it. I did ask about medicaid and she does not think he has it but also he does not have any money or funding either. They do have 5 children between the 2 of them and been for about 7 years but they still talk and are in each others lives. His oldest child is Ruby and she is 18 . Will continue to follow and see what the plans are. She did say he does not have a POA and a sister is coming from [place].
--- NOTE | 2016-10-06 16:42 | NUR ---
Significant Events: Patient has periods of moaning and makes confused statements at times. Is oriented to person and place. S.tach, Levo continues to keep MAPs greater than 65, currently at 0.07 mcg/kg/min. Remains on 4L all shift, does desat at times, lungs clear and diminished. CBI continues at a moderate rate, occassional small clots noted. Did consult Palliative, OT, PT, SP. Will transfuse 1 unit of platelets this afternoon. Follow up: Continue
--- NOTE | 2016-10-07 05:19 | NUR ---
A/Ox3 with continual prompting. Continues in ST with HR 110-120s. Levo gtt currently off. 4-5L NC with o2 sats in low 90s. No BM this shift. Follow up: Continue. Palliative to address family today.
[2016-10-07 05:39] LABS: HEMATOCRIT 33.4 % (37.0-53.0); HEMOGLOBIN 11.4 g/dL (12.0-17.0); MCH 30.5 pg (27.0-34.0); MCHC 34.1 gm/dL (32.0-36.5); MCV 89.3 fl (83.0-98.0); RBC 3.74 M/uL (4.00-6.00); RDW-CV 14.6 % (11.9-14.6); WBC 10.6 K/uL (4.0-11.0)
[2016-10-07 05:42] LABS: PLATELET COUNT 3 K/uL (150-450)
[2016-10-07 05:57] LABS: CALCIUM 7.5 mg/dL (8.5-10.5); CREATININE 3.3 mg/dL (0.6-1.3); MAGNESIUM 1.8 mg/dL (1.3-2.6); POTASSIUM 5.1 mMol/L (3.7-5.1); TOTAL PROTEIN 5.1 g/dL (6.0-8.4)
[2016-10-07 06:00] LABS: ALBUMIN 1.5 gm/dL (3.5-5.0); ANION GAP 21.1 (10.0-19.0); TOTAL BILIRUBIN 3.1 mg/dL (0.0-1.5)
[2016-10-07 06:06] LABS: ABSOLUTE NEUTROPHIL CT (ANC) 9.4 K/uL (1.4-9.0); BANDED NEUTROPHIL # 3.3 K/uL (0.0-0.1); BANDED NEUTROPHILS % 31 %; LYMPHOCYTE # 0.8 K/uL (0.8-4.0); LYMPHOCYTE % 8 %; MONOCYTE # 0.2 K/uL (0.0-1.0); SEGMENTED NEUTROPHIL # 6.2 K/uL (1.4-9.0); SEGMENTED NEUTROPHIL % 58 %
--- NOTE | 2016-10-07 14:25 | NUR ---
I did call and left a vm with Claire Jaramillo at [facility] and did fax initial information. WIll continue to follow.
--- NOTE | 2016-10-07 17:49 | NUR ---
Significant Event: TRANSFERRED FROM ICU TO PCU @ 1655. ALERT BUT NOT RESPONSIVE TO VERBAL QUES. MOANS AND GROANS WITH PHYSICAL STIMULI OR TOUCH. SINUS TACH 110'S. SBP 110'S. O2 @ 5L NC. LEFT FA PIV SL'D. RIGHT FA IV WITH NS @ 100 ML/HR. UP IN CHAIR. 2 ASSIST WITH GB AND WALKER. BEAR CATH PATENT, CBI @ SLOW TO MODERATE RATE, URINE LIGHT PINK TO RED AT TIMES. Follow up: CONTINUE TO MONITOR CLOSELY.
--- NOTE | 2016-10-07 18:43 | NUR ---
Patient alert to self only. Answers questions only at times. Does follow commands appropriately. Patient moans/groans but when asked if having pain patient says no. Hypotensive but MAP >65. Patient continues on 5L o2 nasal cannula. 3-way palomino patent with moderate continuous bladder irrigation. 2 units platelets given this shift. IV to R) FA infusing NS at 100 mL/hr with zosyn. IV to L) FA infusing platelets. Patient transferred to PCU at 1645. Cares handed off to Jazlyn.
--- NOTE | 2016-10-08 05:22 | NUR ---
Significant Event: AT START OF SHIFT, PUPILS WERE NOTED TO BE UNEQUAL. THE R) WAS A 4-5 AND SLUGGISH AND THE L) WAS A [address] MCKINNEY WAS NOTIFIED AND HE SAID TO JUST DOCUMENT IT. THERE WERE NO OTHER DEFICITS NOTED BESIDES THE NOT ANSWERING SOME QUESTIONS AND NOLY FOLLOWING COMMANDS AT TIMES. HIS DAUGHTER CALLED TO CHECK ON HIM AND SHE THOUGHT SOME OF THE WAY HE IS ACTING IS A WITHDRAWAL FROM HIS ORAL MORPHINE. HE HAS BEEN MOANING AND GROANING ALL NIGHT. HE INCREASES WITH STIMULATION. HE ACTS LIKE HE IS HURTING BUT WHEN ASKED, HE REPEATEDLY SAYS HE IS NOT HURTING. HIS O2 WAS ATTEMPTED TO BE WEANED DOWN BY RT BUT HE JUST KEPT DESATTING. DR. TORRES WAS NOTIFIED (WHILE HE WAS ON THE FLOOR) ABOUT PUPILS AND PT STATUS. HE ORDERED A HEAD CT AND 2 MG MORPHINE. THE MORPHINE WAS GIVEN RIGHT BEFORE HE WENT DOWN FOR THE CT TO HOPEFULLY HELP HIM RELAX. HIS CBI CONTINUES AT A SLOW TO MODERATE RATE. Follow up:
[2016-10-08 13:38] LABS: HEMATOCRIT 31.9 % (37.0-53.0); HEMOGLOBIN 10.7 g/dL (12.0-17.0); MCH 29.7 pg (27.0-34.0); MCHC 33.5 gm/dL (32.0-36.5); MCV 88.6 fl (83.0-98.0); MPV 10.5 fl (9.4-12.4); RDW-CV 14.6 % (11.9-14.6); WBC 11.5 K/uL (4.0-11.0)
[2016-10-08 13:45] LABS: PLATELET COUNT 5 K/uL (150-450)
[2016-10-08 13:52] LABS: CALCIUM 7.6 mg/dL (8.5-10.5); CREATININE 3.9 mg/dL (0.6-1.3); PHOSPHORUS 6.2 mg/dL (2.5-4.9); POTASSIUM 5.3 mMol/L (3.7-5.1)
[2016-10-08 13:53] LABS: ALBUMIN 1.6 gm/dL (3.5-5.0); ANION GAP 23.3 (10.0-19.0)
[2016-10-08 14:12] LABS: ABSOLUTE NEUTROPHIL CT (ANC) 10.7 K/uL (1.4-9.0); BANDED NEUTROPHIL # 1.2 K/uL (0.0-0.1); BANDED NEUTROPHILS % 10 %; LYMPHOCYTE # 0.5 K/uL (0.8-4.0); LYMPHOCYTE % 4 %; MONOCYTE # 0.3 K/uL (0.0-1.0); SEGMENTED NEUTROPHIL # 9.6 K/uL (1.4-9.0); SEGMENTED NEUTROPHIL % 83 %
--- NOTE | 2016-10-08 16:43 | NUR ---
SBP 100-1120, PT RESTLESS AND AGITATED, MOANING AND GROANING ALL DAY. DENIES PAIN WHEN ASKED, WITH FIRM "NO". IRREGULAR BREATHING PATTERN. PT WILL ANSWER QUESTIONS OCCASIONALLY. ORIENTED TO SELF ONLY. HX OF ORAL MORHPINE USE, DAUGHTER STATED TO NURSE RECRUITER SHE THINKS HE MAY BE WITHDRAWLING FROM THAT. EX- AND SISTER EXPECTED TO VISIT TOMORROW TO DISCUSS PLAN OF CARE WITH PALLIATIVE CARE. CBI CONTINUES AT SLOW TO MODERATE RATE WITH PRESENCE OF LIGHT RED OUTPUT WITH SOME SEDIMENT. PT HAS HYPERSENSITIVITY TO NOISE AND TOUCH. PLATELET TRANSFUSION THIS AFTERNOON, PT TOLERATED WITH NO REACTIONS. PT IS ON 5L O2 per NASAL CANNULA.
[2016-10-08 21:06] LABS: HEMATOCRIT 29.8 % (37.0-53.0); MCH 29.7 pg (27.0-34.0); MCHC 33.6 gm/dL (32.0-36.5); MCV 88.4 fl (83.0-98.0); MPV 10.1 fl (9.4-12.4); RBC 3.37 M/uL (4.00-6.00); RDW-CV 14.6 % (11.9-14.6); WBC 10.8 K/uL (4.0-11.0)
[2016-10-08 21:07] LABS: PLATELET COUNT 13 K/uL (150-450)
[2016-10-08 21:27] LABS: ABSOLUTE NEUTROPHIL CT (ANC) 9.2 K/uL (1.4-9.0); LYMPHOCYTE % 9 %; MONOCYTE # 0.6 K/uL (0.0-1.0); SEGMENTED NEUTROPHIL # 9.2 K/uL (1.4-9.0); SEGMENTED NEUTROPHIL % 85 %
--- NOTE | 2016-10-09 04:25 | NUR ---
Significant Event: PATIENT IS DISORIENTED TO TIME/PLACE AND FORGETFUL. UNABLE TO CARRY ON FULL CONVERSATION AT TIMES BUT WILL FOLLOW MOST COMMANDS. PATIENT IS VERY SENSITIVE TO TOUCH/SOUND AND HAD C/O GENERALIZED PAIN ALL THROUGHOUT THE SHIFT. IVP DILAUDID GIVENN X3 AND JEFF PO MORPHINE GIVEN WITH RELIEF. VSS. HR 100-110'S. SBP 100-130'S. AFEBRILE. 02 SATS IN LOW TO MID 90'S ON 3L 02 PER NC. LUNGS CLEAR/DIM IN UPPER LOBES AND DIM IN BASES. AT TIME PATIENT'S WILL HAVE VERY FAST, IRREGULAR BREATHS. UP WITH 2A. BOWELS ACTIVE. BEAR INTACT WITH CBI RUNNING AT SLOW TO MODERATELY FAST RATE. 750ML UOP. SCATTERED BRUISES THROUGHOUT AND REDNESS TO BOTTOM. PATIENT TURNS SELF FREQUENTLY. IV TO LEFT FOREARM HAS OLD BLOOD. IV TO RIGHT FOREARM WITH NS AT 100ML/HR. Follow up: CONTINUE TO MONITOR PER PLAN OF CARE.
[2016-10-09 05:00] LABS: HEMATOCRIT 30.6 % (37.0-53.0); HEMOGLOBIN 10.2 g/dL (12.0-17.0); MCH 29.5 pg (27.0-34.0); MCHC 33.3 gm/dL (32.0-36.5); MCV 88.4 fl (83.0-98.0); MPV 10.5 fl (9.4-12.4); RBC 3.46 M/uL (4.00-6.00); RDW-CV 14.6 % (11.9-14.6); WBC 10.8 K/uL (4.0-11.0)
[2016-10-09 05:02] LABS: PLATELET COUNT 10 K/uL (150-450)
[2016-10-09 05:17] LABS: CALCIUM 7.5 mg/dL (8.5-10.5); PHOSPHORUS 5.6 mg/dL (2.5-4.9); POTASSIUM 4.9 mMol/L (3.7-5.1)
[2016-10-09 05:25] LABS: ALBUMIN 1.7 gm/dL (3.5-5.0); ANION GAP 19.9 (10.0-19.0)
[2016-10-09 05:43] LABS: ABSOLUTE NEUTROPHIL CT (ANC) 8.8 K/uL (1.4-9.0); BANDED NEUTROPHIL # 2.8 K/uL (0.0-0.1); BANDED NEUTROPHILS % 26 %; LYMPHOCYTE # 1.7 K/uL (0.8-4.0); LYMPHOCYTE % 16 %; MONOCYTE # 0.1 K/uL (0.0-1.0); SEGMENTED NEUTROPHIL # 5.9 K/uL (1.4-9.0); SEGMENTED NEUTROPHIL % 55 %
--- NOTE | 2016-10-09 10:17 | NUR ---
A - PT SCREENED D/T LOS. DISORIENTED/FORGETFUL. CBI, DECREASED APPETITE. 1:1 @ MEALS. HT: 70" WT: 150# BMI: 21.5 LABS: ACCUCHECK WNL->200, GLU 135, BUN/CR 112/4.0, ALB 1.7, TOT BILI 3.1, PHOS 5.9 MEDS: LEVAQUIN, PROTONIX, SSI, IVF DIET: PUREED, NECTAR LIQUIDS. INTAKE: POOR NEEDS: 5214-9011 KCAL (25-30 KCAL/KG), 68-82 G PRO (1-1.2 G/KG), 2040 ML FLUID (30 ML/KG) D - INADEQUATE NUTRIENT INTAKE R/T DECREASED APPETITE, DIFFICULTY CHEWING/SWALLOWING AEB INTAKE RECORD, FACULTY SUPPORT COORDINATOR EVAL, NEED FOR ALTERED TEXTURE CONSISTENCY. I - GOAL FOR INTAKE > 50% BY NEXT ASSESSMENT. WILL ADD MIGHTY SHAKE TID AND MAGIC CUP @ L&D M/E - WILL MONITOR INTAKE F/U IN 3-4 DAYS.
--- NOTE | 2016-10-09 14:46 | NUR ---
VM from Araceli with [facility], she tells me that she met with Sriram's ex- today and she was on the same page with having Sriram go to [facility] [place] [facility] upon dismissal. Per the VM, Araceli states that Dr. Bradshaw was there by the room when she was there and he indicated to her that it would be sometime next week before he would be ready. I gathered information off the chart to send in an update to [facility]. GIN Menjivar faxed that for me to J LUIS Vidales today at 1445 this afternoon. Plan to let her review that and then touchbase with her on Thursday to make sure they will be able to accept next week when he is medically cleared to come to them. Updated Araceli with [facility] to this. No other questions, needs or concerns. Will continue to follow and assist.
--- NOTE | 2016-10-09 18:49 | NUR ---
Significant Event: A/Ox3. [id number]. P-100-110s. Afebrie. Weaned to Room air with saurations in the low to mid 90s. R) FA IV running octreotide at 50mcg/hr. Hinson running CBI 550ml out per shift. Need UA. Appetite improving. Diet changed to regular liquids, soft diet with ground meets, and pills crushed with apple sauce. Patient got into the chair with 1-2A. Q2HR Turns. Renal consult. Ultrasound of abdomen done. Albumin 25% in 100ml given x1.
--- NOTE | 2016-10-10 05:02 | NUR ---
Significant Event: PATIENT IS DISORIENTED TO TIME/PLACE AND FORGETFUL. CONTINUES TO HAVE WORD SALAD AND DIFFICULTY FINDING WORDS AT TIMES. VSS. HR 100'S. SBP 120-130'S. AFEBRILE. 02 SATS IN LOW TO MID 90'S UP TO 1L 02 PER NC. NO C/O PAIN. JEFF PO MORPHINE GIVEN X1. LUNGS CLEAR TO CLEAR/DIM. UP WITH 2A. RIGID GATE. BEAR INTACT WITH CBI RUNNING AT MODERATE TO FAST RATE. HAVE BEEN SLOWING INCREASING THE RATE THROUHGOUT THE SHIFT. URINE STILL RED IN COLOR. CLAMPED X2 TO TRY TO GET URINE SAMPLE BUT UNABLE TO GET ENOUGH URINE EACH TIME. IV TO RIGHT FOREARM WITH OCTREOTIDE GOING AT 50MCG/HR. Follow up: NEED UA AND URINE CULTURE. CONTINUE TO MONITOR URINE.
[2016-10-10 06:20] LABS: HEMATOCRIT 28.5 % (37.0-53.0); HEMOGLOBIN 9.5 g/dL (12.0-17.0); MCH 29.6 pg (27.0-34.0); MCHC 33.3 gm/dL (32.0-36.5); MCV 88.8 fl (83.0-98.0); MPV 10.8 fl (9.4-12.4); RBC 3.21 M/uL (4.00-6.00); RDW-CV 14.6 % (11.9-14.6); WBC 12.6 K/uL (4.0-11.0)
[2016-10-10 06:25] LABS: PLATELET COUNT 10 K/uL (150-450)
[2016-10-10 06:38] LABS: ALBUMIN 2.6 gm/dL (3.5-5.0); CALCIUM 7.6 mg/dL (8.5-10.5); MAGNESIUM 2.3 mg/dL (1.3-2.6); PHOSPHORUS 6.3 mg/dL (2.5-4.9); POTASSIUM 5.1 mMol/L (3.7-5.1)
[2016-10-10 06:42] LABS: ANION GAP 22.1 (10.0-19.0)
[2016-10-10 07:27] LABS: BANDED NEUTROPHIL # 0.8 K/uL (0.0-0.1); BANDED NEUTROPHILS % 6 %; LYMPHOCYTE % 8 %; MONOCYTE # 0.3 K/uL (0.0-1.0); SEGMENTED NEUTROPHIL # 10.2 K/uL (1.4-9.0); SEGMENTED NEUTROPHIL % 81 %
--- NOTE | 2016-10-10 11:51 | NUR ---
Call to [facility] to talk with J LUIS Stephen. Hailee states that she got the updated fax that was sent over yesterday and things were looking ok for him to come to them when ready to dismiss. Hailee states that she did get the updated fax, and thinks they will be able to accept when medically stable to transfer. She would like an update on Thursday and then we will assess for discharge date/time then. Dr. Cuellar will be the accepting PCP when he dismisses per Hailee. Will obtain RN to RN and MD to MD numbers on Thursday morning after the update is given to Hailee. Will continue to follow and assist.
--- NOTE | 2016-10-10 18:58 | NUR ---
PATIENT UP TO CHAIR W/ 2 ASSIST. PATIENT ON 0.5-1 L NC KEEPS SATS 90-92%. 1 UNIT PLATELETS GIVEN. D/C'D OCTREOTIDE GTT. LASIX IV GIVEN. FAMILY DISCUSSED PLAN OF CARE WITH PALLIATIVE CARE CADD MANAGER. PERCOCET GIVEN X2 FOR PAIN, W/ RELIEF.
[2016-10-11 03:39] LABS: BASOPHIL # 0.1 K/uL (0.0-0.2); BASOPHIL % 0.5 %; EOSINOPHIL # 0.3 K/uL (0.0-0.5); EOSINOPHIL % 1.8 %; HEMATOCRIT 31.3 % (37.0-53.0); HEMOGLOBIN 10.7 g/dL (12.0-17.0); IMMATURE GRANULOCYTE # 0.2 K/uL (0.0-0.3); IMMATURE GRANULOCYTE % 1.6 %; LYMPHOCYTE # 1.4 K/uL (0.8-4.0); LYMPHOCYTE % 9.4 %; MCH 29.7 pg (27.0-34.0); MCHC 34.2 gm/dL (32.0-36.5); MCV 86.9 fl (83.0-98.0); MONOCYTE # 0.9 K/uL (0.0-1.0); MONOCYTE % 6.2 %; MPV 11.2 fl (9.4-12.4); NEUTROPHIL # (ANC) 11.9 K/uL (1.4-9.0); NEUTROPHIL % 80.5 %; NRBC % 0 /100WBC (0-0.00); RDW-CV 14.5 % (11.9-14.6); WBC 14.8 K/uL (4.0-11.0)
[2016-10-11 03:56] LABS: ALBUMIN 2.7 gm/dL (3.5-5.0); MAGNESIUM 2.1 mg/dL (1.3-2.6); PHOSPHORUS 6.2 mg/dL (2.5-4.9); POTASSIUM 4.9 mMol/L (3.7-5.1)
[2016-10-11 03:57] LABS: PLATELET COUNT 30 K/uL (150-450)
[2016-10-11 04:01] LABS: ANION GAP 20.9 (10.0-19.0); CREATININE 4.1 mg/dL (0.6-1.3)
--- NOTE | 2016-10-11 05:01 | NUR ---
DNR/DNI HEP C POSITIVE VSS, O2SATS >90% ON 1L PER NC, RFA PIV SALINE LOCKED, TELE IN PLACE, CBI RUNNING CONTINUOUS LOW W/BLOODY TO CLEAR OUTPUT, KIDNEY STENTS PLACED 3/5 FOR STONES, XL BM BEFORE HS LAST NIGHT, SEVERE SCROTAL EDEMA AND SCROTUM PLACED ON ROLLED WASHCLOTHES FOR SUPPORT, LLE 1+/LUE 2+/RLE 2+ AND RUE 2+ AND BRUISING/SCABS NOTED TO ALL EXTREMITIES. PAIN CONTROLLED WITH PERCOCET LD@1715 AND MS CONTIN LD@2130 WITH GOOD RESULTS. BS @2100 WAS 217 AND RECEIVED 4 UNITS OF SS INSULIN AT THAT TIME. BELOW AVERAGE PO INTAKE FOR FLUIDS/NUTRITION. HAS PROBLEMS AT TIMES EXPRESSING CERTAIN WORKS OR MIXES THEM UP "WORD SALAD" BUT IS A&O X 3 AND PLEASANT AT ALL TIMES. LIVES IN [place], [place] AND WILL RETURN THERE WHEN DISCHARGED IF POSSIBLE.
[2016-10-11 14:27] LABS: BILIRUBIN URINE NEGATIVE (NEGATIVE); BLOOD URINE 250 /UL (NEGATIVE); COLOR URINE RED (YELLOW); GLUCOSE URINE NEGATIVE (NEGATIVE); KETONE URINE NEGATIVE (NEGATIVE); LEUKOCYTES URINE 500 /UL (NEGATIVE); NITRITE URINE POSITIVE (NEGATIVE); PROTEIN URINE 30 mg/dL (NEGATIVE); SPEC GRAVITY URINE 1.005 (1.003-1.035); TURBIDITY URINE 3+ (CLEAR); UROBILINOGEN URINE NORMAL (NORMAL)
[2016-10-11 14:51] LABS: RBC URINE FULL FIELD #/HPF (NEGATIVE); WBC URINE 20-50 #/HPF (NEGATIVE)
[2016-10-11 14:54] LABS: BACTERIA URINE MODERATE (NEGATIVE); EPITHELIAL URINE NEGATIVE #/HPF (NEGATIVE); MUCUS URINE 1+ (NEGATIVE); YEAST URINE MANY (NEGATIVE)
--- NOTE | 2016-10-11 17:34 | NUR ---
Significant Event: A/OX3. Forgetful at times. [id number]. P-90-100s. Afebrile. 1L NC with saturations in low to mid 90s. Lungs clear in upper lobes with crackles in the bilateral bases. R)AFA saline locked. Hinson with CBI draining light yellow urine with brown sediment, 1350ml/shift. 2+ edema to upper extremeties, 3+ pitting, to lower extremities and 4+ scrotal edema. Up with 1-2A. Lg loose BM this shift. Albumin given x2 and 2 more doses today. IVP lasix increased to 60mg BID. Pleasant and cooperative with cares.
[2016-10-12 03:42] LABS: HEMATOCRIT 29.1 % (37.0-53.0); HEMOGLOBIN 10.1 g/dL (12.0-17.0); MCH 29.7 pg (27.0-34.0); MCHC 34.7 gm/dL (32.0-36.5); MCV 85.6 fl (83.0-98.0); MPV 12.1 fl (9.4-12.4); PLATELET COUNT 26 K/uL (150-450); RDW-CV 14.4 % (11.9-14.6); WBC 13.1 K/uL (4.0-11.0)
[2016-10-12 03:58] LABS: ALBUMIN 3.1 gm/dL (3.5-5.0); CREATININE 3.8 mg/dL (0.6-1.3); PHOSPHORUS 5.6 mg/dL (2.5-4.9); POTASSIUM 4.4 mMol/L (3.7-5.1)
[2016-10-12 04:02] LABS: ANION GAP 21.4 (10.0-19.0)
--- NOTE | 2016-10-12 04:59 | NUR ---
Significant Event: SBP 120's. HR low 100's. Was on RA until 0330 then placed on 2L for sats 88%. Has been low 90's since. C/O pain to "bottom", but relief noted with scheduled MS contin. CBI continues at slow rate. 3280 for UOP tonight. 2 doses of albumin 25% given tonight per previous orders. Repositions self and nursing did reposition frequently. PLT this am 26. Rested well. Follow up: Continue to monitor. Continue with CBI
[2016-10-12 05:15] LABS: ABSOLUTE NEUTROPHIL CT (ANC) 11.1 K/uL (1.4-9.0); BANDED NEUTROPHIL # 0.8 K/uL (0.0-0.1); BANDED NEUTROPHILS % 6 %; LYMPHOCYTE # 1.7 K/uL (0.8-4.0); LYMPHOCYTE % 13 %; SEGMENTED NEUTROPHIL # 10.4 K/uL (1.4-9.0); SEGMENTED NEUTROPHIL % 79 %
--- NOTE | 2016-10-12 09:37 | NUR ---
A - NUT F/U. DIET UPGRADED. CBI. FORGETFUL @ TIMES. 2-4+ EDEMA. DECREASED APPETITE. LABS: ACCUCHECK REAS->300, GLU 183, BUN/CR 120/3.1, WBC 13.1 MEDS: LASIX, ALDACTONE, LEVAQUIN, ROCEPHIN, PROTONIX, SSI DIET: SOFT. INTAKE: 0-25% MIGHTY SHAKE TID, MAGIC CUP @ L&D NEEDS: 2831-0941 KCAL, 68-82 G PRO D - INADEQUATE NUTRIENT INTAKE R/T DECREASED APPETITE AEB INTAKE RECORD. I - GOAL FOR INCREASED NUTRIENT INTAKE. WILL CHANGE MIGHTY SHAKE TO ENSURE ENLIVE TO INC NUTRIENT INTAKE. M/E- WILL MONITOR INTAKE F/U IN 3-4 DAYS.
--- NOTE | 2016-10-12 17:01 | NUR ---
Significant Event: A/Ox3. Forgetful at times and slow to respond to questions. SBP-100-140. P-60-80. Afebrile. 1-2L NC with saturations 88-95%. R) AFA IV saline locked. Hinson draninng dark yellow urine with brown sediment, 1425ml/shift. CBI continued. L BM this shift. Up with 1-2A/gaitbelt. Lasix changed to once a day. Levemir 10units daily started. Sliding scale insulin changed to Moderate.
[2016-10-13 04:42] LABS: BASOPHIL # 0.1 K/uL (0.0-0.2); BASOPHIL % 0.6 %; EOSINOPHIL # 0.1 K/uL (0.0-0.5); EOSINOPHIL % 0.8 %; HEMATOCRIT 30.5 % (37.0-53.0); HEMOGLOBIN 10.7 g/dL (12.0-17.0); IMMATURE GRANULOCYTE # 0.4 K/uL (0.0-0.3); IMMATURE GRANULOCYTE % 2.5 %; LYMPHOCYTE # 1.3 K/uL (0.8-4.0); LYMPHOCYTE % 8.2 %; MCH 29.8 pg (27.0-34.0); MCHC 35.1 gm/dL (32.0-36.5); MONOCYTE # 0.7 K/uL (0.0-1.0); MONOCYTE % 4.5 %; MPV 12.7 fl (9.4-12.4); NEUTROPHIL # (ANC) 13.2 K/uL (1.4-9.0); NEUTROPHIL % 83.4 %; NRBC % 0 /100WBC (0-0.00); RBC 3.59 M/uL (4.00-6.00); RDW-CV 14.2 % (11.9-14.6); WBC 15.8 K/uL (4.0-11.0)
[2016-10-13 04:48] LABS: PLATELET COUNT 36 K/uL (150-450)
[2016-10-13 04:52] LABS: ALBUMIN 2.8 gm/dL (3.5-5.0); ANION GAP 17.1 (10.0-19.0); CREATININE 3.5 mg/dL (0.6-1.3); MAGNESIUM 1.9 mg/dL (1.3-2.6); PHOSPHORUS 5.1 mg/dL (2.5-4.9); POTASSIUM 4.1 mMol/L (3.7-5.1)
--- NOTE | 2016-10-13 04:54 | NUR ---
Significant events: Pt A/Ox3, does not always make sense when conversing with patient-word salad. VSS. No complaints of pain. CBI continues. 2000mL UOP + an additional large amount d/t urinal spilled on floor. Urine is light yellow in color and no blood/clots noted. Pt up 1PA. ACHS accucheck. Slept in chair until 0300. Pleasant and cooperative with cares.
--- NOTE | 2016-10-13 11:33 | NUR ---
Faxed an update on Sriram to Hailee at [facility]. Let her know that we were looking towards the middle of the week before he would be ready to come to them per nurse rounding. Hailee is fine with this. States she would like to keep getting updates and when discharge date was know, to let her know and we would coordinate getting the RN to RN and MD to MD report done prior to him leaving. Will continue to follow and assist.
--- NOTE | 2016-10-13 15:52 | NUR ---
Significant Event: ALERT. PATIENT CONFUSED. AND REPETIVE IN HIS SPEECH AND TALKATIVE. CAM POSITIVE. SBP 100-151. HR SR 86-106. SATS 93% ROOM AIR. COOPERATIVE WITH CARES. CBI CLAMPED AND STILL CONNECTED PER DR. ALMENDAREZ. CHEMA PATENT, WITH DARK YELLOW TO CABALLERO COLORED URINE WITH BROWN SEDIMENT. GOOD OUTPUT. CONT. DIURETIC REGIMAN ORDERED BY DR. PRIDE. PT/OT WORK WITH PATIENT, UP IN CHAIR WITH 2 ASSIST. Follow up: CONT. TO MONITER URINE. HOLLY BEAR AT 0700.
[2016-10-14 03:47] LABS: BASOPHIL % 0.3 %; EOSINOPHIL # 0.1 K/uL (0.0-0.5); EOSINOPHIL % 0.4 %; HEMATOCRIT 28.9 % (37.0-53.0); IMMATURE GRANULOCYTE # 0.2 K/uL (0.0-0.3); IMMATURE GRANULOCYTE % 1.5 %; LYMPHOCYTE # 1.1 K/uL (0.8-4.0); LYMPHOCYTE % 8.9 %; MCH 29.8 pg (27.0-34.0); MCHC 34.6 gm/dL (32.0-36.5); MONOCYTE # 0.6 K/uL (0.0-1.0); MONOCYTE % 4.3 %; MPV 11.1 fl (9.4-12.4); NEUTROPHIL # (ANC) 10.8 K/uL (1.4-9.0); NEUTROPHIL % 84.6 %; NRBC % 0 /100WBC (0-0.00); RBC 3.36 M/uL (4.00-6.00); RDW-CV 14.2 % (11.9-14.6); WBC 12.8 K/uL (4.0-11.0)
[2016-10-14 03:54] LABS: PLATELET COUNT 31 K/uL (150-450)
[2016-10-14 04:00] LABS: ALBUMIN 2.5 gm/dL (3.5-5.0); ANION GAP 20.7 (10.0-19.0); CALCIUM 7.8 mg/dL (8.5-10.5); CREATININE 3.2 mg/dL (0.6-1.3); MAGNESIUM 1.8 mg/dL (1.3-2.6); PHOSPHORUS 5.2 mg/dL (2.5-4.9); POTASSIUM 3.7 mMol/L (3.7-5.1)
--- NOTE | 2016-10-14 04:40 | NUR ---
SIGNIFICANT EVENT: when asked orientation questions patient is able to answer appropriately however he does have a positive cam assessment and frequently speaks in clang association. Pal[place]ino remains intave with 2750ml uop this shift. CBI has remained hooked up to palomino but clamped off all shift. Palomino will need to be dc'd at 0700 today per doctors orders. All VSS and cooperative with all cares.
--- NOTE | 2016-10-14 08:17 | NUR ---
CONSULT FOR MALNUTRITION NOTED. PT ASSESSED 10/12 AND APPROPRIATE NUTRITION INTERVENTIONS INITIATED. WILL FOLLOW.
--- NOTE | 2016-10-14 16:29 | NUR ---
Significant Event: Alert and oriented X 3. Uses clang association with most conversation. Room air. Peripheral IV to right anterior forearm, flushes well. SBP 120's & 130's. HR 90's. Hinson removed this am and has voided several times since removal. Soft to loose bowels X 2. Walked in hallway with rehab, 2 times around [place]. 1 assist. Up in recliner majority of shift. Good appetite 100% of both meals. Pleasant and cooperative with cares. Follow up:
--- NOTE | 2016-10-15 03:42 | NUR ---
Significant Event: A/0X3. HIS CLANG ASSOCIATION WITH CONVERSATION IS IMPROVING. TURNED SELF. AFEBRILE. VSS ON RA. PERCOCET GIVEN X 2 AND SCHEDULED MS CONTIN. LAST DOSE OF PERCOCET WAS AT 0217. PATIENT WAS ABLE TO FIND RELIEF PATIENT IS REST COMFORTABLY. IV TO R) FA SL. GAVE 400 ML OF MG THIS EVENING FOR A MAG 0F 1.8. ALSO CHANGED HIS LEVEMIR TO 15 UNITS AT HS AND 4 UNITS OF NOVOLOG WITH MEALS. VOIDED 650+. HAD A BM X1. POSSIBLY D/C BACK TO [facility] TODAY. Follow up: CONTINUE WITH PLAN OF CARE. D/C?
[2016-10-15 05:01] LABS: BASOPHIL # 0.1 K/uL (0.0-0.2); BASOPHIL % 0.3 %; EOSINOPHIL # 0.1 K/uL (0.0-0.5); EOSINOPHIL % 0.5 %; HEMATOCRIT 27.6 % (37.0-53.0); HEMOGLOBIN 9.4 g/dL (12.0-17.0); IMMATURE GRANULOCYTE # 0.3 K/uL (0.0-0.3); IMMATURE GRANULOCYTE % 1.7 %; LYMPHOCYTE # 1.3 K/uL (0.8-4.0); LYMPHOCYTE % 8.3 %; MCH 29.5 pg (27.0-34.0); MCHC 34.1 gm/dL (32.0-36.5); MCV 86.5 fl (83.0-98.0); MONOCYTE # 0.7 K/uL (0.0-1.0); MONOCYTE % 4.7 %; MPV 11.5 fl (9.4-12.4); NEUTROPHIL # (ANC) 12.8 K/uL (1.4-9.0); NEUTROPHIL % 84.5 %; NRBC % 0 /100WBC (0-0.00); RBC 3.19 M/uL (4.00-6.00); RDW-CV 14.4 % (11.9-14.6); WBC 15.1 K/uL (4.0-11.0)
[2016-10-15 05:02] LABS: PLATELET COUNT 39 K/uL (150-450)
[2016-10-15 05:21] LABS: ALBUMIN 2.5 gm/dL (3.5-5.0); ANION GAP 15.5 (10.0-19.0); CALCIUM 7.7 mg/dL (8.5-10.5); CREATININE 2.8 mg/dL (0.6-1.3); MAGNESIUM 1.7 mg/dL (1.3-2.6); PHOSPHORUS 4.8 mg/dL (2.5-4.9); POTASSIUM 3.5 mMol/L (3.7-5.1)
--- NOTE | 2016-10-15 11:11 | NUR ---
Talked with Lyly Hartley APRN, pt ready for dc back to [facility] today. I called [facility] and talked with Pat, swingbed coordinator, they will accept today. Called ex Nohemi Mancilla and she will come get him between [address] Brownlee and she will call Dr Prieto and fill out orders. Pt sleeping so will let nurse tell him plan for today. Will follow.
--- NOTE | 2016-10-15 11:44 | NUR ---
Significant Event: TRANSFER NOTE: A/O X 3. SOMETIMES REPETITIVE SPEECH AND RHYMING SENTENCES. COOPERATIVE. PT/OT WORKS WITH PATIENT. 02 SATS 95% ON ROOM AIR,WITH NO RESP. DISTRESS. ACCU-CHECKS 96-108 TODAY. TAKES SCHEDULED MS CONTIN AND PRN PERCOCET FOR CHRONIC SHOULDER AND BACK PAIN WITH RELIEF. TODAY SEMI-LOOSE STOOLS X 2. NO C/O NAUSEA. HR 70-90'S IN SR. SBP 130'S. Follow up: CONT. PLAN OF CARES AT [facility].
--- NOTE | 2016-10-15 14:57 | NUR ---
Dr Prieto out of the office today, Dr Brownlee left a voicemail on his cell number. Then I got a call from Claire at [facility] requesting Dr Brownlee call [facility] to accept at same number, called Dr Brownlee and she did already talk with [facility] D[facility]lo who accepted patient. Pt discharged to [facility] with .
== END 2016-10-15 14:40 | disposition swing bed (61) | DRG 871 ==
LOC: GPCU 14:28 → GICU 14:28 → GPCU 10-07 16:54
PROVIDERS: Internal Medicine Nephrology; Student in an Organized Health Care Education/Training Program; ADMIT Internal Medicine
PROC: 0T778DZ Dilation of Left Ureter with Intraluminal Device, Via Natural or Artificial Opening Endoscopic (ICD-10-PCS; principal; 2016-10-05)
PROC: 30233R1 Transfusion of Nonautologous Platelets into Peripheral Vein, Percutaneous Approach (ICD-10-PCS; 2016-10-06)
PROC: 30233R1 Transfusion of Nonautologous Platelets into Peripheral Vein, Percutaneous Approach (ICD-10-PCS; 2016-10-07)
PROC: 30233R1 Transfusion of Nonautologous Platelets into Peripheral Vein, Percutaneous Approach (ICD-10-PCS; 2016-10-08)
DX: A41.89 Other specified sepsis (principal); R65.21 Severe sepsis with septic shock; N17.9 Acute kidney failure, unspecified; D69.6 Thrombocytopenia, unspecified; E87.70 Fluid overload, unspecified; E11.65 Type 2 diabetes mellitus with hyperglycemia; N13.6 Pyonephrosis; B18.2 Chronic viral hepatitis C; M54.5 Low back pain; K21.9 Gastro-esophageal reflux disease without esophagitis; Z66 Do not resuscitate; K74.60 Unspecified cirrhosis of liver; F32.9 Major depressive disorder, single episode, unspecified
CPT/HCPCS: C1769; C2617; C9113; G0480; J0696; J1170; J1940; J1956; J2270; J2354; J2543; J7030; J7040; J7050; J7060; P9035; P9047

== ENCOUNTER → 2016-10-05 | Outpatient (CLI) | payer MEDICARE ==
[~2016-10-05] MED LIST: AMITIZA8 MCG PO; FLOMAX0.4 MG PO; MORPHINE SULFAT30 MG PO; MS CONTIN60 MG PO; OMEPRAZOLE40 MG PO; PROMETHAZINE12.5 M1 PO; ZOFRAN ODT 4 MG4 MG PO
== END | disposition disaster alternative care site (69) ==
LOC: GAMB 13:55 → GAIR 13:55
DX: A41.9 Sepsis, unspecified organism (principal); R65.21 Severe sepsis with septic shock; R41.82 Altered mental status, unspecified; K75.9 Inflammatory liver disease, unspecified; F32.9 Major depressive disorder, single episode, unspecified; E11.9 Type 2 diabetes mellitus without complications; Z79.899 Other long term (current) drug therapy
CPT/HCPCS: A0422; A0431; A0436; J7030

== ENCOUNTER → 2017-01-08 | Outpatient (CLI) | payer MEDICARE | END | disposition disaster alternative care site (69) | LOC: GRAD 11-20 11:45 | DX: N20.0 Calculus of kidney (principal); Z96.0 Presence of urogenital implants ==